=== PATIENT | male | born 1960 | race Caucasian/White ===

== ENCOUNTER → 2025-05-18 14:02 | Outpatient (REF) | payer MEDICARE, BC, SELFPAY ==
[2025-05-18 14:39] LABS: B.E. 2.9 mmol/L; HCO3 28.9 mmol/L (21-28); O2 Saturation % 95.7 % (94-98); PCO2 50 mmHg (35-48); PO2 71 mmHg (83-108)
== END ==
LOC: RSP 14:02
PROVIDERS: ATTENDING PHYSICIAN Family Medicine
DX: J96.21 Acute and chronic respiratory failure with hypoxia (principal)
CPT/HCPCS: 36415; 36600; 82805